=== PATIENT | male | born 1935 | race Caucasian/White ===

== ENCOUNTER 2021-05-23 08:57 | Emergency (ER) | payer OTHER ==
[~2021-05-23] VITALS: Ht 175.3 cm; Wt 86.2 kg
[2021-05-23] MEDS ORDERED: POLYTRIM EYE DR10 ML BOTHEYES ×2 (09:30→09:48)
== END 2021-05-23 09:53 | disposition home or self-care (01) ==
LOC: ER 08:57
DX: H10.023 Other mucopurulent conjunctivitis, bilateral (principal); E11.9 Type 2 diabetes mellitus without complications; Z88.1 Allergy status to other antibiotic agents
CPT/HCPCS: 99282